=== PATIENT | female | born 1960 | race Caucasian/White ===

== ENCOUNTER 2016-07-18 07:24 | Emergency (ER) | payer MEDICAID ==
[~2016-07-18] VITALS: Ht 157.5 cm; Wt 87.5 kg
[~2016-07-18 07:24] MED LIST: AUG500 PO; LAC PO; NORCO1 TA2; NORCO1 TA2 PO; PRAVASTATIN SOD20 M1 PO; PRILOSEC20 MG PO
[2016-07-18 07:55] VITALS: BP 147/74
== END 2016-07-18 07:55 | disposition home or self-care (01) ==
LOC: ED 07:24
DX: H11.31 Conjunctival hemorrhage, right eye (principal); E66.9 Obesity, unspecified; E78.5 Hyperlipidemia, unspecified